=== PATIENT | female | born 1950 | race Caucasian/White ===

== ENCOUNTER 2018-09-02 13:00 | Emergency (ER) | payer OTHER ==
[2018-09-02] MEDS: KETOROLAC 30 MG INJ IM (15:57)
[2018-09-02] MEDS: METHOCARBAMOL 750 MG TAB PO (15:57)
== END 2018-09-02 17:22 | disposition home or self-care (01) ==
LOC: FTE 13:00
DX: M54.5 Low back pain (principal)
CPT/HCPCS: 72131; 96372; 99285-25